=== PATIENT | female | born 1970 | race African-American/Black ===

== ENCOUNTER 2017-05-07 05:17 | Emergency (ER) | payer OTHER ==
--- NOTE | 2017-05-07 06:39 | RADIOLOGY REPORT (SQ) ---
EXAM DESCRIPTION: CT HEAD WITHOUT COMPLETED DATE/TIME: 05/07/2017 6:28 am REASON FOR STUDY: numbness in hands COMPARISON: None. TECHNIQUE: Axial images acquired through the brain without intravenous contrast. Images reviewed wi th bone, brain and subdural windows. Images stored on PACS. All CT scanners at this facility use dose modulation, iterative reconstruction, and/or weight based d osing when appropriate to reduce radiation dose to as low as reasonably achievable (ALARA). [facility]: Dose Right [facility]: CareDose [facility]: Dose Right [facility]: Teradose 4D [facility]: [employer] RADIATION DOSE: mGy. LIMITATIONS: None. FINDINGS: VENTRICLES: Normal size and contour. CEREBRUM: No mass effect. No hemorrhage. No midline shift. Normal ramos/white matter differentiatio n. No evidence for acute territorial infarction. CEREBELLUM: No mass effect. No hemorrhage. No alteration of density. No evidence for acute infarct ion. EXTRAAXIAL SPACES: No fluid collections. ORBITS AND GLOBE: Symmetrical contour of the globes. CALVARIUM: No depressed skull fracture. PARANASAL SINUSES: No air-fluid level. SOFT TISSUES: No hematoma. IMPRESSION: No acute intracranial hemorrhage or acute territorial infarct. EVIDENCE OF ACUTE STROKE: NO. COMMENT: Quality ID # [id number]: Final reports with documentation of one or more dose reduction techniques (e.g., Automated exposure control, adjustment of the mA and/or kV according to patient size, use of iterative reconstruction technique) TECHNICAL DOCUMENTATION: JOB ID: [id number] 2010 [employer]- All Rights Reserved
--- NOTE | 2017-05-07 06:47 | RADIOLOGY REPORT (SQ) ---
EXAM DESCRIPTION: CHEST SINGLE VIEW COMPLETED DATE/TIME: 05/07/2017 6:34 am REASON FOR STUDY: numbness in hands COMPARISON: Chest x-ray 07/30/2015. EXAM PARAMETERS: NUMBER OF VIEWS: One view. TECHNIQUE: Single frontal radiographic view of the chest acquired. RADIATION DOSE: NA LIMITATIONS: None. FINDINGS: LUNGS AND PLEURA: No consolidation, pneumothorax or pleural effusion. MEDIASTINUM AND HILAR STRUCTURES: No masses. Contour normal. HEART AND VASCULAR STRUCTURES: Heart normal in size. Normal vasculature. BONES: No acute findings. HARDWARE: Degenerative changes in the spine. IMPRESSION: No acute radiographic finding in the chest. TECHNICAL DOCUMENTATION: JOB ID: [id number] 2010 [employer]- All Rights Reserved
[2017-05-07 07:34] LABS: ABSOLUTE EOSINOPHILS # (AUTO) 0.1 10^3/uL (0.0-0.6); ABSOLUTE LYMPHOCYTES (AUTO) 2.3 10^3/uL (0.5-4.7); ABSOLUTE MONOCYTES (AUTO) 0.5 10^3/uL (0.1-1.4); ABSOLUTE NEUT (AUTO) 2.4 10^3/uL (1.7-8.2); BASOPHILS % (AUTO) 0.7 % (0-2); EOSINOPHILS % (AUTO) 2.5 % (0-6); HEMATOCRIT 37.3 % (36.0-47.0); HEMOGLOBIN 12.4 g/dL (12.0-15.5); MEAN CORPUSCULAR HEMOGLOBIN 30.3 pg (27.0-33.4); MEAN CORPUSCULAR HGB CONC 33.1 g/dL (32.0-36.0); MEAN CORPUSCULAR VOLUME 92 fl (80-97); MONOCYTES % (AUTO) 8.9 % (3-13); PLATELET COUNT 371 10^3/uL (150-450); RED BLOOD COUNT 4.07 10^6/uL (3.72-5.28); RED CELL DISTRIBUTION WIDTH 13.9 % (11.5-14.0); SEGMENTED NEUTROPHILS % (AUTO) 44.9 % (42-78); TOTAL CELLS COUNTED % (AUTO) 100 %; WHITE BLOOD COUNT 5.4 10^3/uL (4.0-10.5)
[2017-05-07 07:41] LABS: INTERNATIONAL RATION (INR) 0.86; PROTHROMBIN TIME 12.4 SEC (11.4-15.4)
[2017-05-07 07:42] LABS: PARTIAL THROMBOPLASTIN TIME 33.9 SEC (23.5-35.8)
[2017-05-07 07:58] LABS: ALANINE AMINOTRANSFERASE 41 U/L (9-52); ALBUMIN 4.3 g/dL (3.5-5.0); ALKALINE PHOSPHATASE 98 U/L (38-126); ANION GAP 7 (5-19); ASPARTATE AMINO TRANSFERASE 27 U/L (14-36); BILIRUBIN,DIRECT 0.4 mg/dL (0.0-0.4); BILIRUBIN,TOTAL 0.6 mg/dL (0.2-1.3); BLOOD UREA NITROGEN 16 mg/dL (7-20); CALCIUM 10.1 mg/dL (8.4-10.2); CARBON DIOXIDE 29 mmol/L (22-30); CHLORIDE 105 mmol/L (98-107); CREATINE KINASE 217 U/L (30-135); GLUCOSE 88 mg/dL (75-110); POTASSIUM 4.3 mmol/L (3.6-5.0); SODIUM 140.7 mmol/L (137-145); TOTAL PROTEIN 7.1 g/dL (6.3-8.2)
[2017-05-07 08:06] LABS: CREATINE KINASE MB 2.16 ng/mL (<4.55)
[2017-05-07 08:11] LABS: TROPONIN I < 0.012 ng/mL
[2017-05-07] MEDS ORDERED: KETOROLAC TROMETHAMINE 60 MG/2 ML SDV IM ONE (08:16)
--- NOTE | 2017-05-07 08:16 | ER Document Report ---
ED General - General Chief Complaint: Pain All Over Stated Complaint: BODY PAIN/WEAKNESS Time Seen by Provider: 05/07/17 06:06 Mode of Arrival: Ambulatory Information source: Patient Notes: 47-year-old female presents with multiple complaints, patient notes that she has tingling in both hands, neck pain gone across her arm and chest. Patient denies any fevers admits to body aches admits to neck pain and headache. Patient denies any vomiting notes symptoms have been ongoing now for approximately 2 days TRAVEL OUTSIDE OF THE [place] IN LAST 30 DAYS: No - HPI Onset: Yesterday Onset/Duration: Persistent Quality of pain: Achy Severity: Mild Pain Level: 1 Associated symptoms: Body/muscle aches Exacerbated by: Movement Relieved by: Denies Similar symptoms previously: No Recently seen / treated by doctor: No - Related Data Allergies/Adverse Reactions: amoxicillin [Amoxicillin] Allergy (Verified 05/07/17 05:18) Sulfa (Sulfonamide Antibiotics) Allergy (Verified 05/07/17 05:18) Past Medical History - Social History Smoking Status: Never Smoker Cigarette use (# per day): No Chew tobacco use (# tins/day): No Smoking Education Provided: No Frequency of alcohol use: None Drug Abuse: None Family History: Reviewed & Not Pertinent Patient has suicidal ideation: No Patient has homicidal ideation: No Pulmonary Medical History: Reports: Hx Asthma Renal/ Medical History: Denies: Hx Peritoneal Dialysis Past Surgical History: Reports: Hx Hysterectomy, Hx Orthopedic Surgery - RIGHT ANKLE - Immunizations Hx Diphtheria, Pertussis, Tetanus Vaccination: Yes Review of Systems - Review of Systems Notes: REVIEW OF SYSTEMS: CONSTITUTIONAL : Denies fever, chills, or sweats. Denies recent illness. EENT: Denies eye, ear, throat, or mouth pain or symptoms. Denies nasal or sinus congestion or discharge. Denies throat, tongue, or mouth swelling or difficulty swallowing. CARDIOVASCULAR: Denies chest pain. Denies palpitations or racing or irregular heart beat. Denies ankle edema. RESPIRATORY: Denies cough, cold, or chest congestion. Denies shortness of breath, difficulty breathing, or wheezing. GASTROINTESTINAL: Denies abdominal pain or distention. Denies nausea, vomiting , or diarrhea. Denies blood in vomitus, stools, or per rectum. Denies black, tarry stools. Denies constipation. GENITOURINARY: Denies difficulty urinating, painful urination, burning, frequency, blood in urine, or discharge. FEMALE GENITOURINARY: Denies vaginal bleeding, heavy or abnormal periods, irregular periods. Denies vaginal discharge or odor. MUSCULOSKELETAL: Denies back or neck pain or stiffness. Denies joint pain or swelling. SKIN: Denies rash, lesions or sores. HEMATOLOGIC : Denies easy bruising or bleeding. LYMPHATIC: Denies swollen, enlarged glands. NEUROLOGICAL: Admits headache tingling in the fingers pain radiating from neck down hands bilateral admits to generalized back pain PSYCHIATRIC: Denies anxiety or stress. Denies depression, suicidal ideation, or homicidal ideation. ALL OTHER SYSTEMS REVIEWED AND NEGATIVE. PHYSICAL EXAMINATION: GENERAL: Well-appearing, well-nourished and in no acute distress. HEAD: Atraumatic, normocephalic. EYES: Pupils equal round and reactive to light, extraocular movements intact, conjunctiva are normal. ENT: Nares patent, oropharynx clear without exudates. Moist mucous membranes. NECK: Normal range of motion, supple without lymphadenopathy LUNGS: Breath sounds clear to auscultation bilaterally and equal. No wheezes rales or rhonchi. HEART: Regular rate and rhythm without murmurs ABDOMEN: Soft, nontender, nondistended abdomen. No guarding, no rebound. No masses appreciated. Female : deferred Musculoskeletal: Normal range of motion, no pitting or edema. No cyanosis. Reducible neck tenderness thoracic tenderness and lumbar tenderness which reproduced the patient's pain in hands and numbness NEUROLOGICAL: Cranial nerves grossly intact. Normal speech, normal gait. Normal sensory, motor exams PSYCH: Normal mood, normal affect. SKIN: Warm, Dry, normal turgor, no rashes or lesions noted. 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 The symptoms worsen with movement of her neck, her lab work CT otherwise are negative. I will discharge her with follow-up with cardiology and neurology for further evaluation care. She otherwise appears quite benign. After performing a Medical Screening Examination, I estimate there is LOW risk for ACUTE GLAUCOMA, TEMPORAL ARTERITIS, MENINGITIS, INCRANIAL HEMORRHAGE, or ISCHEMIC STROKE thus I consider the discharge disposition reasonable. I have reevaluated this patient multiple times and no significant life threatening changes are noted. The patient and I have discussed the diagnosis and risks, and we agree with discharging home with close follow-up with the understanding that symptoms and presentations can change. We also discussed returning to the Emergency Department immediately if new or worsening symptoms occur. We have discussed the symptoms which are most concerning (e.g., changing or worsening symptoms, new numbness or weakness, vomiting, fever) that necessitate immediate return. - Vital Signs Vital signs: Temp Pulse Resp BP Pulse Ox 98.0 F 70 20 130/64 H 99 05/07/17 05:34 05/07/17 05:34 05/07/17 05:34 05/07/17 05:34 05/07/17 05:34 - Laboratory Result Diagrams: 05/07/17 07:20 05/07/17 07:20 Laboratory results interpreted by me: 05/07/17 07:20 Creatine Kinase 217 H - Diagnostic Test Radiology reviewed: Image reviewed, Reports reviewed - EKG Interpretation by Ct EKG shows normal: Sinus rhythm, [place], Intervals, QRS Complexes Discharge - Discharge Clinical Impression: Paresthesia Headache Qualifiers: Headache type: unspecified Headache chronicity pattern: acute headache Intractability: not intractable Qualified Code(s): R51 - Headache Back pain Qualifiers: Back pain location: back pain in unspecified location Chronicity: acute Back pain laterality: bilateral Qualified Code(s): M54.9 - Dorsalgia, unspecified Condition: Stable Disposition: HOME, SELF-CARE Instructions: Low Back Pain ([facility]), Neuropathy ([facility]) Prescriptions: Ketorolac Tromethamine [Toradol 10 mg Tablet] 10 mg PO BID #10 tablet Forms: Return to Work Referrals: BARBARA VELAZQUEZ MD [ACTIVE STAFF] - Follow up tomorrow KATHERIN MENDEZ MD [ACTIVE STAFF] - Follow up tomorrow
--- NOTE | 2017-05-07 08:25 | EKG REPORT ---
SEVERITY:- BORDERLINE ECG - SINUS RHYTHM NONSPECIFIC BIPHASIC T WAVE CHANGES, UNCHANGED FROM 07/30/15 EKG : Confirmed by: Alistair Manzo MD 07-May-2017 08:24:23
[2017-05-07 09:38] VITALS: BP 130/81
== END 2017-05-07 09:00 | disposition home or self-care (01) ==
LOC: ER 05:17
DX: R20.2 Paresthesia of skin (principal); R51 Headache; M54.9 Dorsalgia, unspecified; Z90.710 Acquired absence of both cervix and uterus; Z88.0 Allergy status to penicillin; Z88.2 Allergy status to sulfonamides
CPT/HCPCS: 93005; 99285; 96372; 36415; 82553; 82550; 85025; 85610; 85730; 80053; 84484; 71045; 70450; 93010; J1885

== ENCOUNTER 2018-01-21 19:20 | Emergency (ER) | payer SELFPAY ==
--- NOTE | 2018-01-21 20:51 | RADIOLOGY REPORT (SQ) ---
EXAM DESCRIPTION: KNEE LEFT 3 VIEWS COMPLETED DATE/TIME: 01/21/2018 8:28 pm REASON FOR STUDY: pain COMPARISON: None. NUMBER OF VIEWS: Three views. TECHNIQUE: AP, lateral, and sunrise patella radiographic images acquired of the left knee. LIMITATIONS: None. FINDINGS: MINERALIZATION: Normal. BONES: No acute fracture or dislocation. No worrisome bone lesions. Marginal osteophytes are seen a t the patella. A quadriceps enthesophyte is present. The patella axial radiograph demonstrates mild lateral patellar tilt. JOINT: No effusion. SOFT TISSUES: No soft tissue swelling. No radio-opaque foreign body. OTHER: No other significant finding. IMPRESSION: Mild lateral patellar tilt suggesting maltracking. Associated patellofemoral degenerati ve changes. TECHNICAL DOCUMENTATION: JOB ID: [id number]- All Rights Reserved Reading location - IP/workstation name: [email or web address]
--- NOTE | 2018-01-21 21:36 | ER Document Report ---
ED Extremity Problem, Lower - General Chief Complaint: Knee Pain Stated Complaint: KNEE PAIN Time Seen by Provider: 01/21/18 19:56 Information source: Patient Notes: Patient is a 47-year-old morbidly obese female comes emergency room complaining of left knee pain. Patient states she woke up with painful at about 2 weeks ago and is progressively gotten worse over time. Has been mostly began bad over the past few days. Patient states is difficult to walk on it and just extended fully. She denies any new trauma states that when she had the original injury are noted the original pain it was waking up one morning and denied any known trauma. She does state that she had a history of trauma to that knee many years ago. Has had no problems with it at all until now. She denies any other injuries. TRAVEL OUTSIDE OF THE [place] IN LAST 30 DAYS: No - HPI Patient complains to provider of: Pain, Swelling Location: Knee Occurred: Other - 2 weeks Where: Home Onset/Duration: Sudden Quality of pain: Burning, Cramping, Sharp Severity: Moderate Recent injury: No Associated symptoms: Unable to bear weight Exacerbated by: Movement, Walking Relieved by: Nothing - Related Data Allergies/Adverse Reactions: amoxicillin [Amoxicillin] Allergy (Verified 05/07/17 05:18) Sulfa (Sulfonamide Antibiotics) Allergy (Verified 05/07/17 05:18) Past Medical History - General Information source: Patient Last Menstrual Period: Hysterectomy - Social History Smoking Status: Never Smoker Cigarette use (# per day): No Chew tobacco use (# tins/day): No Smoking Education Provided: No Frequency of alcohol use: Occasional Drug Abuse: None Family History: Reviewed & Not Pertinent Patient has suicidal ideation: No Patient has homicidal ideation: No Pulmonary Medical History: Reports: Hx Asthma Renal/ Medical History: Denies: Hx Peritoneal Dialysis Past Surgical History: Reports: Hx Hysterectomy, Hx Orthopedic Surgery - RIGHT ANKLE - Immunizations Hx Diphtheria, Pertussis, Tetanus Vaccination: Yes Review of Systems - Review of Systems Constitutional: No symptoms reported EENT: No symptoms reported Cardiovascular: No symptoms reported Respiratory: No symptoms reported Gastrointestinal: No symptoms reported Genitourinary: No symptoms reported Female Genitourinary: No symptoms reported Musculoskeletal: Joint pain, Joint swelling Skin: No symptoms reported Hematologic/Lymphatic: No symptoms reported Neurological/Psychological: No symptoms reported -: Yes All other systems reviewed and negative Physical Exam - Vital signs Vitals: Temp Pulse Resp BP Pulse Ox 98.8 F 88 20 141/75 H 97 01/21/18 19:36 01/21/18 19:36 01/21/18 19:36 01/21/18 19:36 01/21/18 19:36 Interpretation: Hypertensive - Notes Notes: Patient is a well-nourished well-developed morbidly obese female comes to the emergency room in no apparent distress but does appear to be uncomfortable. - General General appearance: Alert - HEENT Head: Normocephalic, Atraumatic, Open wounds - Respiratory Respiratory status: No respiratory distress Chest status: Nontender Breath sounds: Normal. No: Rales, Rhonchi, Stridor, Wheezing Chest palpation: Normal - Cardiovascular Rhythm: Regular Heart sounds: Normal auscultation Murmur: No - Abdominal Inspection: Normal Distension: No distension Bowel sounds: Normal Tenderness: Nontender, Tender. No: McBurney's point, Lopez's sign, Guarding Organomegaly: No organomegaly. No: Hepatomegaly, Splenomegaly - Extremities General upper extremity: Normal inspection, Nontender, Normal color, Normal ROM , Normal strength, Normal temperature. No: Tender, Edema General lower extremity: Tender, Edema, Normal color. No: Normal inspection, Normal ROM, Normal strength, Normal temperature, Normal weight bearing, Salty's sign Shoulder: Normal Knee: Tender, Ecchymosis, Joint effusion, Pain with ROM, Patellar tendon intact , Tender joint line, Unable to bear weight, Other - Examination of the left knee shows it to be mildly swollen compared to the right knee. There is some point tenderness on the medial aspect of the left knee. This is around the medial collateral ligament area. Patient has difficult time getting full extension. She has good popliteal pulses and good dorsalis pedal pulse.. No: Normal, Nontender, Abrasion, Deformity, Dislocation, Drawer's test instability, Instability, Laceration, Laxity with valgus stress, Laxity with varus stress, Popliteal fossa tender Course - Re-evaluation Re-evalutation: 01/21/18 22:28 X-ray actually did show a defect which appears to be a in alignment defect of the patella. This may be secondary to the one leg is approximately 2 inches shorter than the other. But this is on this could need to be seen by orthopedist and treatment will be considered by them. We will put her in a knee immobilizer for now crutches only temporarily as long as she feels she needs them for support other than that she can use the knee immobilizer only. If she should have any concerns or problems were asked her to return to ER for recheck. - Vital Signs Vital signs: Temp Pulse Resp BP Pulse Ox 98.9 F 86 17 132/88 H 98 01/21/18 22:15 01/21/18 22:15 01/21/18 22:15 01/21/18 22:15 01/21/18 22:15 Procedures - Immobilization Left Knee Time completed: 22:29 Pre-Proc Neuro Vasc Exam: Normal Immobilizer type: Knee immobilizer Performed by: PCT Post-Proc Neuro Vasc Exam: Normal, Unchanged from pre-exam Alignment checked and good: Yes Discharge - Discharge Clinical Impression: Left knee patellar tracking defect, Left anterior knee pain Condition: Good Disposition: HOME, SELF-CARE Instructions: Use of Crutches ([facility]), Ice & Elevation ([facility]), Suspected Internal Knee Injury ([facility]), Knee Immobilizing Splint ([facility]), Oral Narcotic Medication ([facility] ), Sprained Knee ([facility]) Additional Instructions: Using the immobilizer at all times. You may loosen it up at night when you sleep. You may eventually get off of the crutches completely and just use the immobilizer to walk with a straight leg. Try to ice the knee at least twice a day. Medication as prescribed. I can only write a few pain medication pills by our rules and policies. So we will try you on strong ibuprofen 800 mg 3 times a day with food. And a muscle relaxer. Should you have any concerns or problems return to ER for recheck but it is highly important that you see orthopedic for that. Prescriptions: Methocarbamol [Robaxin 750 mg Tablet] 750 mg PO ASDIR PRN #40 tablet PRN Reason: Prednisone [Deltasone 20 mg Tablet] 3 tab PO DAILY 4 Days #12 tablet Referrals: WALE HERBERT MD [ACTIVE STAFF] - Follow up as needed
[2018-01-21] MEDS ORDERED: HYDROCODONE/ACETAMINOPHEN 5-325 MG TABLET PO ONE (22:04)
[2018-01-21 22:16] VITALS: BP 132/88
== END 2018-01-21 22:42 | disposition home or self-care (01) ==
LOC: ER 19:20
DX: M24.10 Other articular cartilage disorders, unspecified site (principal); M25.562 Pain in left knee; J45.909 Unspecified asthma, uncomplicated; E66.01 Morbid (severe) obesity due to excess calories
CPT/HCPCS: 99283; 73562; L1830

== ENCOUNTER 2019-09-12 20:57 | Emergency (ER) | payer BC, OTHER ==
[2019-09-12] MEDS ORDERED: NORMAL SALINE 1000 ML 1,000 ML IV PRN (21:14)
--- NOTE | 2019-09-12 21:17 | ER Document Report ---
ED Medical Screen (RME) - General Chief Complaint: Flank Pain Stated Complaint: PAIN WHILE URINATING/BACK PAIN Time Seen by Provider: 09/12/19 21:07 Notes: This 49-year-old female presented emergency room today stating that she has discomfort from the right side of her back laterally all the way down to her flank. She went to her doctor yesterday thinking that she had a urinary tract infection she had a urine dip she actually brought the slip and with the result and her urine was negative she did have some ketones she does not have a history of diabetes does have a family history of diabetes does have a very slight amount of nausea based on the fact that she was evaluated yesterday with a negative urine and brought the result and I felt it would be better to evaluate her a little bit further. TRAVEL OUTSIDE OF THE [place] IN LAST 30 DAYS: No - Related Data Allergies/Adverse Reactions: amoxicillin [Amoxicillin] Allergy (Verified 09/12/19 21:12) Sulfa (Sulfonamide Antibiotics) Allergy (Verified 09/12/19 21:12) Past Medical History Pulmonary Medical History: Reports: Hx Asthma Renal/ Medical History: Denies: Hx Peritoneal Dialysis Past Surgical History: Reports: Hx Hysterectomy, Hx Orthopedic Surgery - RIGHT ANKLE - Immunizations Hx Diphtheria, Pertussis, Tetanus Vaccination: Yes Physical Exam - Vital signs Vitals: Temp Pulse Resp BP Pulse Ox 98.5 F 94 20 137/72 H 98 09/12/19 21:03 09/12/19 21:03 09/12/19 21:03 09/12/19 21:03 09/12/19 21:03 Course - Vital Signs Vital signs: Temp Pulse Resp BP Pulse Ox 98.5 F 94 20 137/72 H 98 09/12/19 21:03 09/12/19 21:03 09/12/19 21:03 09/12/19 21:03 09/12/19 21:03
[2019-09-13 03:58] LABS: APPEARANCE,URINE CLOUDY; BILIRUBIN,URINE NEGATIVE (NEGATIVE); COLOR,URINE YELLOW; GLUCOSE, URINE NEGATIVE (NEGATIVE); KETONES,URINE NEGATIVE (NEGATIVE); LEUKOCYTE ESTERASE,URINE TRACE (NEGATIVE); NITRITE,URINE NEGATIVE (NEGATIVE); PROTEIN,URINE NEGATIVE (NEGATIVE); URINE SPECIFIC GRAVITY 1.026
[2019-09-13] MEDS ORDERED: KETOROLAC TROMETHAMINE INJ/PF 30 MG/1 ML SDV IV ONE (04:38)
[2019-09-13 04:59] LABS: ABSOLUTE BASOPHILS # (AUTO) 0.1 10^3/uL (0.0-0.2); ABSOLUTE EOSINOPHILS # (AUTO) 0.2 10^3/uL (0.0-0.6); ABSOLUTE LYMPHOCYTES (AUTO) 2.4 10^3/uL (0.5-4.7); ABSOLUTE MONOCYTES (AUTO) 0.5 10^3/uL (0.1-1.4); ABSOLUTE NEUT (AUTO) 3.8 10^3/uL (1.7-8.2); BASOPHILS % (AUTO) 1.3 % (0-2); EOSINOPHILS % (AUTO) 2.2 % (0-6); HEMATOCRIT 38.3 % (36.0-47.0); HEMOGLOBIN 12.7 g/dL (12.0-15.5); LYMPHOCYTES % (AUTO) 34.7 % (13-45); MEAN CORPUSCULAR HEMOGLOBIN 30.2 pg (27.0-33.4); MEAN CORPUSCULAR HGB CONC 33.2 g/dL (32.0-36.0); MEAN CORPUSCULAR VOLUME 91 fl (80-97); MONOCYTES % (AUTO) 7.1 % (3-13); PLATELET COUNT 422 10^3/uL (150-450); RED BLOOD COUNT 4.21 10^6/uL (3.72-5.28); RED CELL DISTRIBUTION WIDTH 14.7 % (11.5-14.0); SEGMENTED NEUTROPHILS % (AUTO) 54.7 % (42-78); TOTAL CELLS COUNTED % (AUTO) 100 %
[2019-09-13 05:06] LABS: ALBUMIN 4.7 g/dL (3.5-5.0); ALKALINE PHOSPHATASE 122 U/L (38-126); ANION GAP 5 (5-19); ASPARTATE AMINO TRANSFERASE 27 U/L (14-36); BILIRUBIN,DIRECT 0.1 mg/dL (0.0-0.4); BILIRUBIN,TOTAL 0.6 mg/dL (0.2-1.3); BLOOD UREA NITROGEN 22 mg/dL (7-20); CARBON DIOXIDE 30 mmol/L (22-30); CHLORIDE 105 mmol/L (98-107); GLUCOSE 106 mg/dL (75-110); POTASSIUM 4.5 mmol/L (3.6-5.0); TOTAL PROTEIN 8.2 g/dL (6.3-8.2)
--- NOTE | 2019-09-13 05:42 | RADIOLOGY REPORT (SQ) ---
EXAM DESCRIPTION: CT ABDOMEN PELVIS WITHOUT IV CONTRAST COMPLETED DATE/TME: 09/13/2019 04:39 CLINICAL HISTORY: r flank pain dysuria. hcg neg. COMPARISON: None Available. TECHNIQUE: CT of the abdomen and pelvis without IV contrast. Evaluation of the solid organs and vasculature is suboptimal due to lack of IV contrast. FINDINGS: Lung Bases: The visualized lung bases are clear. Bones: No destructive bone lesions identified. Abdomen: Liver: The liver has normal size and density. Gallbladder: No calcified gallstones. Spleen, Pancreas, and Adrenal Glands: The spleen, pancreas, and adrenal glands are unremarkable. Kidneys: The kidneys have normal size without evidence of hydronephrosis. No obstructing ureteral calculi. Vasculature: The aorta and IVC have normal caliber and position. Stomach: The stomach and duodenum have normal course. Other: No free intraperitoneal air. No free fluid or lymphadenopathy. Pelvis: Bladder: Urinary bladder is unremarkable. Bowel: No dilated loops of large or small bowel. Appendix: Normal appendix. Pelvis: Prior hysterectomy. IMPRESSION: 1. No acute inflammatory or obstructive process identified. This exam was performed according to our departmental dose-optimization program, which includes automated exposure control, adjustment of the mA and/or kV according to patient size and/or use of iterative reconstruction technique.
--- NOTE | 2019-09-13 06:16 | ER Document Report ---
ED General - General Chief Complaint: Flank Pain Stated Complaint: PAIN WHILE URINATING/BACK PAIN Time Seen by Provider: 09/12/19 21:07 Primary Care Provider: ROSE MARY PECK MD [Primary Care Provider] - Follow up as needed TRAVEL OUTSIDE OF THE [place] IN LAST 30 DAYS: No - HPI Notes: 49-year-old female history of arthritis, asthma presents with 1 day gradual onset severe constant right lower back/flank pain exacerbated by all movement not relieved by the NSAID patient takes for her arthritis. Patient feels like when she pushes to urinate that pain is exacerbated but does not have any actual dysuria. 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 Patient had an episode of back pain in past that felt similar. Patient denies hematuria, frequency, urgency, fever, midline back pain, change in gait, weakness or numbness, urinary retention, bowel incontinence, drug use, immune compromise, chronic steroid use, anticoagulation, bleeding diatheses - Related Data Allergies/Adverse Reactions: amoxicillin [Amoxicillin] Allergy (Verified 09/12/19 21:12) Sulfa (Sulfonamide Antibiotics) Allergy (Verified 09/12/19 21:12) Home Medications: ARTHRITIS Past Medical History - General Information source: Patient - Social History Smoking Status: Never Smoker Frequency of alcohol use: Occasional Drug Abuse: None Family History: Reviewed & Not Pertinent Patient has homicidal ideation: No Pulmonary Medical History: Reports: Hx Asthma Renal/ Medical History: Denies: Hx Peritoneal Dialysis Past Surgical History: Reports: Hx Hysterectomy, Hx Orthopedic Surgery - RIGHT ANKLE - Immunizations Hx Diphtheria, Pertussis, Tetanus Vaccination: Yes Review of Systems - Review of Systems Notes: REVIEW OF SYSTEMS: CONSTITUTIONAL : Denies fever, chills, or sweats. EENT: Denies recent cold/sinus symptoms, denies throat pain CARDIOVASCULAR: Denies chest pain, CAROLYN RESPIRATORY: Denies cough, denies shortness of breath. GASTROINTESTINAL: Denies abdominal pain, nausea/vomiting. GENITOURINARY: Denies difficulty urinating, painful urination. FEMALE GENITOURINARY: Denies abnormal vaginal bleeding, vaginal discharge. MUSCULOSKELETAL: Denies neck pain, +back pain. SKIN: Denies rash or skin lesions. HEMATOLOGIC : Denies easy bruising or bleeding. LYMPHATIC: Denies swollen, enlarged glands. NEUROLOGICAL: Denies headache, denies change in gait. PSYCHIATRIC: Denies anxiety or stress or depression. Physical Exam - Vital signs Vitals: Temp Pulse Resp BP Pulse Ox 98.5 F 94 20 137/72 H 98 09/12/19 21:03 09/12/19 21:03 09/12/19 21:03 09/12/19 21:03 09/12/19 21:03 - Notes Notes: PHYSICAL EXAMINATION: GENERAL: Well-appearing, well-nourished and in no acute distress. HEAD: Atraumatic, normocephalic. EYES: Pupils equal round and appropriate constriction, sclera anicteric, conjunctiva are normal. ENT: nares patent, moist mucous membranes. NECK: Normal range of motion, supple without lymphadenopathy LUNGS: Breath sounds clear to auscultation bilaterally and equal. No wheezes rales or rhonchi. HEART: Regular rate and rhythm without murmurs ABDOMEN: Soft, nontender, no guarding, no masses, +right CVAT EXTREMITIES: Normal range of motion, no pitting or edema. No cyanosis. BACK: Normal inspection, no CTL or S spinal tenderness, full range of motion, diffuse tenderness while palpating over lower right lateral paraspinal muscles, no masses or edema or overlying skin abnormalities NEUROLOGICAL: Awake, alert, conversing appropriately, moves all extremities spontaneously. PSYCH: Normal mood, normal affect. SKIN: Warm, Dry, normal turgor, no rashes or lesions noted. Course - Re-evaluation Re-evalutation: 09/13/19 06:41 No signs on history and no findings during ED work-up suggestive of infectious etiology. obtain CT abdomen pelvis to rule out kidney stone given location of patient's pain which did not show any emergent findings. Given area of tenderness likely paraspinal muscle strain, no neurologic symptoms or deficits, had extensive conversation with patient regarding possible etiologies of pain and importance of PCP and orthopedic follow-up, patient said that she has a PCP and an orthopedic surgeon already that she can follow-up with. I gave patient extensive return to ED precautions which she demonstrated understanding of. - Vital Signs Vital signs: Temp Pulse Resp BP Pulse Ox 98.4 F 85 12 129/65 H 98 09/13/19 01:12 09/13/19 01:12 09/13/19 01:12 09/13/19 01:12 09/13/19 01:12 - Laboratory Result Diagrams: 09/13/19 04:22 09/13/19 04:22 Laboratory results interpreted by me: 09/13/19 09/13/19 09/13/19 03:40 04:22 04:22 RDW 14.7 H BUN 22 H Est GFR (MDRD) Non-Af 53 L Urine Urobilinogen 2.0 H Ur Leukocyte Esterase TRACE H Discharge - Discharge Clinical Impression: Back pain Condition: Stable Disposition: HOME, SELF-CARE Additional Instructions: Low Back Pain Three out of every four people will have an episode of disabling back pain during their lifetime. Most commonly the pain is due to straining of the muscles and ligaments in the low back. Usual treatment includes: (1) Rest on a firm surface. Avoid lying on your stomach. (2) Ice pack the painful area. After a few days, gentle heat may be used intermittently to relax the area, or ice packs can be continued. (3) Medication may be needed -- muscle relaxers and antiinflammatory medicines are commonly used. (4) As the back improves, exercises are prescribed to strengthen the back and abdominal muscles. Your doctor will advise you on the proper care for your back at each stage in your recovery. You may be better in a few days -- or healing may take several weeks. If new symptoms of a "herniated disc" (radiation of pain, numbness, or tingling down the back of the leg or weakness in the leg) occur, you should be re-examined. Further testing may be necessary. Pain Control without Medication Stress, inactivity, and depression make pain more severe, no matter the cause of the pain. Stress and poor physical condition can cause pain such as headaches and backache. Relaxation: Rest in a quiet place with your eyes closed for 20 minutes twice daily. Concentrate on a pleasant image, or simply "feel" your breathing. Clear your mind. Stress management: DEAL with your "stressors." Either take action, or eliminate the stressor from your life. Don't let things hang over you. Accept those things you can't change. Nutrition: Eat small, balanced meals; don't skip, don't overeat. Meals should be high-carbohydrate, low-sugar, low-fat. Exercise: Exercise helps painful conditions and eases stress. Get 30 minutes of moderate exercise, five days a week. Precautions: Pain that continues to disrupt daily activities, or which changes in nature, requires a medical evaluation. Follow-up with your primary doctor and your orthopedic surgeon within 1 week. If you should have any worsening symptoms such as worsening pain, spreading pain, fever, difficulty urinating, difficulty walking, weakness or numbness, difficulty holding your bowel movements, or any other worsening or alarming symp toms return to the emergency department immediately. Prescriptions: Acetaminophen with Codeine [Tylenol #3 Tablet] 1 each PO Q6HP PRN #8 tablet PRN Reason: Cyclobenzaprine HCl [Flexeril 10 mg Tablet] 10 mg PO TIDP PRN #10 tab PRN Reason: Referrals: ROSE MARY PECK MD [Primary Care Provider] - Follow up as needed
[2019-09-13 06:47] VITALS: BP 117/85
== END 2019-09-13 06:43 | disposition home or self-care (01) ==
LOC: ER 20:57
DX: M54.5 Low back pain (principal); R10.9 Unspecified abdominal pain; J45.909 Unspecified asthma, uncomplicated; M19.90 Unspecified osteoarthritis, unspecified site; Z79.1 Long term (current) use of non-steroidal anti-inflammatories (NSAID); Z88.0 Allergy status to penicillin; Z88.2 Allergy status to sulfonamides
CPT/HCPCS: 99284; 96361; 96374; 36415; 83690; 85025; 81025; 80053; 81001; 74176; J1885; J7030

== ENCOUNTER 2020-01-30 08:57 | Emergency (ER) | payer BC ==
--- NOTE | 2020-01-30 10:35 | ER Document Report ---
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 She took her inhaler now feels better. She has no residual cough or shortness of breath and now feels all right but wants a Covid test and a work note because she is willing to work when the kid is sick. TRAVEL OUTSIDE OF THE [place] IN LAST 30 DAYS: No - Related Data Allergies/Adverse Reactions: amoxicillin [Amoxicillin] Allergy (Verified 01/30/20 09:16) Sulfa (Sulfonamide Antibiotics) Allergy (Verified 01/30/20 09:16) Home Medications: nebulizer. inhaler. advair. zovolog Past Medical History - General Information source: Patient - Social History Smoking Status: Never Smoker Chew tobacco use (# tins/day): No Frequency of alcohol use: Occasional Drug Abuse: None Family History: Reviewed & Not Pertinent Patient has homicidal ideation: No Pulmonary Medical History: Reports: Hx Asthma Renal/ Medical History: Denies: Hx Peritoneal Dialysis Past Surgical History: Reports: Hx Hysterectomy, Hx Orthopedic Surgery - RIGHT ANKLE - Immunizations Hx Diphtheria, Pertussis, Tetanus Vaccination: Yes Review of Systems - Review of Systems Notes: REVIEW OF SYSTEMS GEN: Denies fever, chills, weight loss ENT: Denies sore throat, nasal discharge, ear pain EYES: Denies blurry vision, eye pain, discharge CV: Denies chest pain, palpitations, edema RESP: Resolved cough shortness of breath and wheezing GI: Denies abdominal pain, nausea, vomiting, diarrhea MSK: Denies joint pain/swelling, edema, SKIN: Denies rash, skin lesions LYMPH: Denies swollen glands/lymph nodes NEURO: Denies headache, focal weakness or numbness, dizziness PSYCH: Denies depression, suicidal or homicidal ideation PHYSICAL EXAMINATION General: No acute distress, well-nourished Head: Atraumatic, normocephalic ENT: Mouth normal, oropharynx moist, no exudates or tonsillar enlargement Eyes: Conjunctiva normal, pupils equal, lids normal Neck: No JVD, supple, no guarding CVS: Normal rate, regular rhythm, no murmurs Resp: No resp distress, equal and normal breath sounds bilaterally GI: Nondistended, soft, no tenderness to palpation, no rebound or guarding Ext: No deformities, no edema, normal range of motion in upper and lower ext Back: No CVA or midline TTP Skin: No rash, warm Lymphatic: No lymphadeopathy noted Neuro: Awake, alert. Face symmetric. GCS 15. Physical Exam - Vital signs Vitals: Temp Pulse Resp BP Pulse Ox 98.5 F 96 24 H 151/74 H 97 01/30/20 09:04 01/30/20 09:04 01/30/20 09:04 01/30/20 09:04 01/30/20 09:04 Course - Re-evaluation Re-evalutation: 01/30/20 12:56 Resolved asthma exacerbation with clear lungs normal saturation no indication for x-ray doubt pneumonia PE etc. Will refill inhaler and start on a steroid taper. Covid test/PUI I have discussed with the patient there likely diagnosis, aftercare plan, follow-up plans and my usual and customary return precautions. They verbalized understanding of this. - Vital Signs Vital signs: Temp Pulse Resp BP Pulse Ox 98.5 F 88 20 150/89 H 100 01/30/20 09:16 01/30/20 11:00 01/30/20 11:00 01/30/20 11:00 01/30/20 11:00 Discharge - Discharge Clinical Impression: Asthma exacerbation Qualifiers: Asthma severity: mild Asthma persistence: intermittent Qualified Code(s): J45.21 - Mild intermittent asthma with (acute) exacerbation Condition: Good Disposition: HOME, SELF-CARE Instructions: COVID-19 Guidance for Persons Under Investigation, Asthma ([facility]) Prescriptions: Prednisone [Deltasone 20 mg Tablet] 20 mg PO DAILY #5 tablet Forms: Return to Work Referrals: ROSE MARY PECK MD [Primary Care Provider] - Follow up as needed
[2020-01-30 11:14] VITALS: BP 150/89
== END 2020-01-30 11:00 | disposition home or self-care (01) ==
LOC: ER 08:57
DX: J45.901 Unspecified asthma with (acute) exacerbation (principal); U07.1 COVID-19; Z79.899 Other long term (current) drug therapy; Z79.51 Long term (current) use of inhaled steroids; Z88.0 Allergy status to penicillin; Z88.2 Allergy status to sulfonamides
CPT/HCPCS: 99283; U0003; C9803; 87635